=== PATIENT | male | born 1930 | race Hispanic/Latino ===

== ENCOUNTER → 2017-06-09 | Outpatient (CLI) | payer OTHER | END | disposition home or self-care (01) | LOC: SHCH 11:09 | PROVIDERS: ATTEND Internal Medicine Cardiovascular Disease | DX: I35.0 Nonrheumatic aortic (valve) stenosis (principal) | CPT/HCPCS: 93306 ==

== ENCOUNTER → 2018-12-22 | Outpatient (CLI) | payer OTHER ==
[~2018-12-22] MED LIST: AEC81 PO; AMLO5TAB9 PO; ATOR20TA65 PO; LANS30CA55 PO; LEVO75TA10 PO; LISI-613 PO; TAMS0.4C32 PO
== END | disposition home or self-care (01) ==
LOC: SHCH 11:27
PROVIDERS: ATTEND Internal Medicine Cardiovascular Disease
DX: I08.0 Rheumatic disorders of both mitral and aortic valves (principal); I11.9 Hypertensive heart disease without heart failure
CPT/HCPCS: 93306

== ENCOUNTER 2019-03-28 08:39 | Observation (INO) | payer OTHER ==
[~2019-03-28] VITALS: Ht 172.7 cm; Wt 80.7 kg
[2019-03-28 09:27] LABS: BASOPHILS % (AUTO) 0.6 % (0.0-5.0); EOSINOPHILS % (AUTO) 0.9 % (0.0-8.0); HEMATOCRIT 44.2 % (42-54); LYMPHOCYTES % (AUTO) 26.8 % (21.0-51.0); MEAN CORPUSCULAR HEMOGLOBIN 30.6 pg (27.0-33.0); MONOCYTES % (AUTO) 8.7 % (3.0-13.0); PLATELET COUNT (AUTO) 237 K/uL (130-400); RED BLOOD CELL COUNT(AUTO) 4.92 MIL/uL (4.50-6.20); RED CELL DISTRIBUTION WIDTH 14.6 % (11.0-15.5); WHITE BLOOD COUNT (AUTO) 10.2 K/uL (4.8-10.8)
[2019-03-28 09:34] LABS: CREATININE 1.2 mg/dL (0.5-1.5); POTASSIUM 3.5 mmol/L (3.5-5.1)
[2019-03-28 09:35] LABS: INR 0.95 (0.85-1.15); PARTIAL THROMBOPLASTIN TIME 30.8 SEC (26.3-35.5)
[2019-03-28 09:43] LABS: ALBUMIN 3.9 g/dL (3.5-5.0); BILIRUBIN,TOTAL 0.6 mg/dL (0.2-1.0); TOTAL PROTEIN, SERUM 7.6 g/dL (6.0-8.3)
[2019-03-28 09:55] LABS: APPEARANCE,URINE Clear (CLEAR); BILIRUBIN,URINE Negative (NEGATIVE); COLOR,URINE Yellow (YELLOW); GLUCOSE, URINE (UA) Negative (NEGATIVE); KETONES,URINE Negative (NEGATIVE); LEUKOCYTE ESTERASE ,URINE Negative (NEGATIVE); NITRATE,URINE Negative (NEGATIVE); OCCULT BLOOD,URINE Nonhemolyzed Trace (NEGATIVE); PH,URINE 5.5 (5.0-8.0); PROTEIN,URINE Negative (NEGATIVE)
[2019-03-28 10:01] LABS: B-TYPE NATRIURETIC PEPTIDE 74 pg/mL (0-100)
[2019-03-28 10:19] LABS: BACTERIA,URINE None Seen /HPF (None Seen); MUCUS,URINE Rare LPF (None Seen); RBC,URINE 0-1 /HPF (0-1); SQUAMOUS EPITHELIAL CELL,UR None Seen /HPF (0-2); WBC,URINE None Seen /HPF (0-1)
[2019-03-28] MEDS ORDERED: ASPIRIN 325 MG TABLET ONE (10:34)
[2019-03-28] MEDS ORDERED: HYOSCYAMINE SULFATE 0.125 MG TAB.SUBL SL ONE (10:34)
[2019-03-28] MEDS ORDERED: NITROGLYCERIN 1GM/1 INCH PACKET TD SCH (11:30)
[2019-03-28] MEDS ORDERED: NITROGLYCERIN 1GM/1 INCH PACKET TD ONE (11:32)
[2019-03-28] MEDS ORDERED: ACETAMINOPHEN 325 MG TAB PO PRN (12:45)
[2019-03-28] MEDS ORDERED: MORPHINE SULFATE 2 MG/ML 1ML SYG IVP PRN (12:45)
[2019-03-28] MEDS ORDERED: LACTULOSE 20 GM/30 ML UDCUP PO PRN (12:45)
[2019-03-28] MEDS ORDERED: DICYCLOMINE HCL 20 MG TAB PO PRN (12:45)
[2019-03-28] MEDS ORDERED: ONDANSETRON HCL 4 MG/2 ML VIAL IVP PRN (12:45)
[2019-03-28] MEDS ORDERED: NITROGLYCERIN 1GM/1 INCH PACKET TD PRN (13:00)
[2019-03-28 13:11] VITALS: BP 120/74
--- NOTE | 2019-03-28 13:36 | NUR ---
Patient welcomed to floor, verbally described room layout and use of call light button as patient is blind in both eyes. Laying semi-vaca's, patient demonstrated how to use call light. 2L oxygen placed by [place]. Treatment plan reviewed and spouse made aware of visitation policy and overnight arrangements. Home medications reviewed. Patient only has clothes and hearing aids. Spouse notified to take medications home.
[2019-03-28] MEDS ORDERED: METO-391 PO (13:51)
[2019-03-28 16:00] VITALS: BP 125/70
[2019-03-28 16:00] LABS: CREATINE KINASE, TOTAL 107 U/L (21-232); MYOGLOBIN 122 ng/mL (10-92); TROPONIN I < 0.04 ng/mL (0.00-0.06)
--- NOTE | 2019-03-28 16:14 | NUR ---
Notified Dr. Howard of telemetry report of paced rhythm in 's with possibly underlying flutter. Medications reviewed, and reported metoprolol succinate ER 50 mg q daily was taken Fri, Fri but patient stopped taking because reported palpitations and Lt shoulder, chest pain. Received order for EKG. Will report findings to Dr. Howard.
--- NOTE | 2019-03-28 17:13 | NUR ---
Notified Dr. Howard of EKG report stating atrial-sensed ventricular paced rhythm with fusion complexes. Medication side effects of metroprolol reviewed. Also reported chronic sore pain and weakness to left shoulder and anterior chest that increased with metoprolol therapy at home as reported by patient. Will continue to monitor.
[2019-03-28 20:16] VITALS: BP 146/80
[2019-03-28 23:15] VITALS: BP 142/87
[2019-03-28] MEDS: FAMOTIDINE/PF 20 MG/2 ML VIAL IV SCH (23:35)
[2019-03-28] MEDS: ATORVASTATIN CALCIUM 20 MG TABLET PO SCH (23:35)
[2019-03-29 00:06] LABS: TROPONIN I 0.04 ng/mL (0.00-0.06)
[2019-03-29 03:29] VITALS: BP 131/78
[2019-03-29 06:06] LABS: HEMATOCRIT 41.3 % (42-54); MEAN CORPUSCULAR HEMOGLOBIN 30.6 pg (27.0-33.0); MEAN CORPUSCULAR HGB CONC 33.8 g/dL (32.0-36.0); MEAN CORPUSCULAR VOLUME 90.3 fL (79-99); NUCLEATED RED BLOOD CELLS 0.1 % (0.0-0.19); PLATELET COUNT (AUTO) 216 K/uL (130-400); RED BLOOD CELL COUNT(AUTO) 4.57 MIL/uL (4.50-6.20); RED CELL DISTRIBUTION WIDTH 14.6 % (11.0-15.5); WHITE BLOOD COUNT (AUTO) 8.2 K/uL (4.8-10.8)
[2019-03-29 06:14] LABS: HEMOGLOBIN A1C 5.6 % (4.0-6.0)
[2019-03-29 06:28] LABS: POTASSIUM 3.4 mmol/L (3.5-5.1)
[2019-03-29 08:00] VITALS: BP 149/85
[2019-03-29 08:38] LABS: CREATINE KINASE, TOTAL 165 U/L (21-232); MYOGLOBIN 100 ng/mL (10-92); TROPONIN I < 0.04 ng/mL (0.00-0.06)
[2019-03-29] MEDS: METOPROLOL TARTRATE 25 MG TAB PO SCH (09:22)
[2019-03-29] MEDS: ENOXAPARIN SODIUM 30 MG/0.3 ML SQ SCH (09:23)
[2019-03-29] MEDS: ASPIRIN 81MG TAB.CHEW PO SCH (09:23)
[2019-03-29] MEDS: FAMOTIDINE/PF 20 MG/2 ML VIAL IV SCH ×2 (09:23→21:21)
[2019-03-29 12:00] VITALS: BP 150/86
--- NOTE | 2019-03-29 12:40 | NUR ---
CM NOTE- INITIAL ASSESSMENT MET W PT AND SPOUSE; LIVES W SPOUSE [place] WHO WILL PROVIDE TRANSPORT- PT HAS BEEN BLIND 2011; HOME IS SAFE AND ACCESSIBLE AND PT USES ONLY A CANE FOR THE BLIND, BUT HAS NO MOBILITY ISSUES; PT USES TO HAVE [facility], > 1 YEAR AGO, AFTER LAST HOSPITALIZATION
[2019-03-29] MEDS ORDERED: HYDRALAZINE HCL 20 MG/ML VIAL IV PRN (13:15)
[2019-03-29 16:00] VITALS: BP 142/84
[2019-03-29 19:20] VITALS: BP 124/69
[2019-03-29] MEDS ORDERED: LIDOCAINE HCL-MPF 1% 2ML VIAL IV PRN (20:30)
[2019-03-29] MEDS ORDERED: MAGNESIUM 2GM PREMIX 50ML 50 ML IV PRN (20:30)
[2019-03-29] MEDS ORDERED: POTASSIUM CHLORIDE 20MEQ/100ML 100 ML IV PRN (20:30)
[2019-03-29] MEDS ORDERED: POTASSIUM CHLORIDE 10% ELIXIR 20 MEQ/15 ML UDCUP PO PRN (20:30)
[2019-03-29] MEDS: ATORVASTATIN CALCIUM 20 MG TABLET PO SCH (21:21)
[2019-03-29] MEDS: POTASSIUM CHLORIDE 20 MEQ ERTAB PO PRN ×2 (21:21→23:37)
[2019-03-30 00:12] VITALS: BP 137/63
[2019-03-30 04:12] VITALS: BP 129/77
[2019-03-30 07:00] VITALS: BP 123/77
[2019-03-30 07:11] LABS: CREATININE 1.1 mg/dL (0.5-1.5); POTASSIUM 3.8 mmol/L (3.5-5.1)
[2019-03-30] MEDS: ASPIRIN 81MG TAB.CHEW PO SCH (09:43)
[2019-03-30] MEDS: METOPROLOL TARTRATE 25 MG TAB PO SCH (09:43)
[2019-03-30] MEDS: FAMOTIDINE/PF 20 MG/2 ML VIAL IV SCH (09:43)
[2019-03-30] MEDS: ENOXAPARIN SODIUM 30 MG/0.3 ML SQ SCH (09:44)
--- NOTE | 2019-03-30 09:45 | NUR ---
DR. Melita AGUILAR HERE FROM CARDIAC STANDPOINT REVIEW HIS EKGS, CHEST PAIN STATUS AND HIS CONCERNS . QUESTIONS REVIEW AND DR. LAWRENCE CLEAR FROM CARDIAC STATUS ,, DR. AGUILAR STATED ALREADY HAD A APPT SETUP
[2019-03-30 11:00] VITALS: BP 113/67
--- NOTE | 2019-03-30 12:08 | NUR ---
DR. REDDY . HERE ,AND SPOKE WITH PT OF PLAN OF CARE . UPDATE , DR SARAHI AVILES , CALL LIGHT IN REACH..
[2019-03-30] MEDS ORDERED: METO-408 PO (12:24)
--- NOTE | 2019-03-30 16:00 | NUR ---
RN NOTES :- FOR SOME REASON THEY DID NOT SAVE UNTO CHART. FROM [facility] DISCHARGE SUMMARY, REVIEWED WITH PT AND OF DISCHARGE PLANNING . REVIEW MEDICATIONS AND SIDE EFFECT, AND ALSO A HIGH FIBER DIET . PER DR. AGUILAR RECCOMMENDATION . WAS ABLE TO DIRECT HIS SUMMARY AND CARE DUE TO HX OF VISION PROBLEMS . THE SL TO HIS RFA WAS DC , WITH NO HEMATOMA NOTED WITH A SM PRESSURE DRSG APPLICATION ON .
== END 2019-03-30 15:15 | disposition home or self-care (01) ==
LOC: EDH 08:39 → EDHIP 11:28 → 3DH 12:34
PROVIDERS: ADMIT Family Medicine; ATTEND Family Medicine
DX: R10.11 Right upper quadrant pain (principal); R07.89 Other chest pain; E78.5 Hyperlipidemia, unspecified; E03.9 Hypothyroidism, unspecified; I25.10 Atherosclerotic heart disease of native coronary artery without angina pectoris; I10 Essential (primary) hypertension; K59.00 Constipation, unspecified; K57.30 Diverticulosis of large intestine without perforation or abscess without bleeding; R00.2 Palpitations; I35.0 Nonrheumatic aortic (valve) stenosis; G47.33 Obstructive sleep apnea (adult) (pediatric); I44.7 Left bundle-branch block, unspecified; H54.7 Unspecified visual loss; I25.5 Ischemic cardiomyopathy; I44.2 Atrioventricular block, complete; N40.0 Benign prostatic hyperplasia without lower urinary tract symptoms; Z99.89 Dependence on other enabling machines and devices; Z95.1 Presence of aortocoronary bypass graft; Z95.0 Presence of cardiac pacemaker; Z79.82 Long term (current) use of aspirin; Z79.899 Other long term (current) drug therapy
CPT/HCPCS: 36415 ×3; 71045; 74176; 80048 ×2; 80053; 80061; 81001; 82150; 82550 ×4; 83036; 83605; 83690; 83874 ×3; 83880; 84484 ×5; 85025; 85027; 85610; 85730; 87040 ×2; 87804 ×2; 93005 ×5; 96372 ×2; 96374; 96376 ×2; 99284; G0378 ×51; J1650 ×2; J3490 ×4

== ENCOUNTER 2019-10-02 07:27 | Emergency (ER) | payer OTHER ==
[~2019-10-02 07:27] MED LIST changes: -AMLO5TAB9 PO; +METO-408 PO; -TAMS0.4C32 PO
[2019-10-02 08:05] LABS: APPEARANCE,URINE CLEAR (CLEAR); BILIRUBIN,URINE NEGATIVE (NEGATIVE); COLOR,URINE YELLOW (YELLOW); GLUCOSE, URINE (UA) NEGATIVE (NEGATIVE); KETONES,URINE NEGATIVE (NEGATIVE); LEUKOCYTE ESTERASE ,URINE NEGATIVE (NEGATIVE); NITRATE,URINE NEGATIVE (NEGATIVE); OCCULT BLOOD,URINE NEGATIVE (NEGATIVE); PROTEIN,URINE NEGATIVE (NEGATIVE); UROBILINOGEN,URINE 0.2 mg/dL (0.2-1.0)
[2019-10-02 08:44] LABS: CREATININE 1.2 mg/dL (0.5-1.5); POTASSIUM 3.7 mmol/L (3.5-5.1)
[2019-10-02 08:48] LABS: ALBUMIN 3.9 g/dL (3.5-5.0); BILIRUBIN,TOTAL 0.9 mg/dL (0.2-1.0); TOTAL PROTEIN, SERUM 7.1 g/dL (6.0-8.3)
[2019-10-02 09:14] LABS: B-TYPE NATRIURETIC PEPTIDE 100 pg/mL (0-100)
[2019-10-02 09:17] LABS: BASOPHILS % (AUTO) 0.3 % (0.0-5.0); EOSINOPHILS % (AUTO) 1.3 % (0.0-8.0); HEMATOCRIT 44.4 % (42-54); LYMPHOCYTES % (AUTO) 33.2 % (21.0-51.0); MEAN CORPUSCULAR HEMOGLOBIN 29.7 pg (27.0-33.0); MEAN CORPUSCULAR HGB CONC 34.2 g/dL (32.0-36.0); MEAN CORPUSCULAR VOLUME 86.9 fL (79-99); MONOCYTES % (AUTO) 10.2 % (3.0-13.0); NEUTROPHILS % (AUTO) 54.9 % (40.0-77.0); PLATELET COUNT (AUTO) 195 K/uL (130-400); RED BLOOD CELL COUNT(AUTO) 5.11 MIL/uL (4.50-6.20); WHITE BLOOD COUNT (AUTO) 7.7 K/uL (4.8-10.8)
[2019-10-02 09:33] LABS: INR 0.94 (0.85-1.15); PARTIAL THROMBOPLASTIN TIME 30.1 SEC (26.3-35.5); PROTHROMBIN TIME 10.2 SEC (9.6-11.6)
[2019-10-02] MEDS ORDERED: IOHEXOL-350 50ML VIAL IV ONE (10:37)
== END 2019-10-02 17:44 | disposition short-term general hospital (02) ==
LOC: EDH 07:27
DX: R06.00 Dyspnea, unspecified (principal); C32.1 Malignant neoplasm of supraglottis; I10 Essential (primary) hypertension; E78.5 Hyperlipidemia, unspecified; I25.10 Atherosclerotic heart disease of native coronary artery without angina pectoris; H54.8 Legal blindness, as defined in USA; Z95.0 Presence of cardiac pacemaker; Z87.891 Personal history of nicotine dependence
CPT/HCPCS: 36415; 70360; 70492; 71045; 80053; 81003; 82150; 83690; 83880; 84484; 85025; 85610; 85730; 87880; 93005; 99285; Q9967